=== PATIENT | male | born 2000 | race Hispanic/Latino ===

== ENCOUNTER 2022-02-25 14:45 | Emergency (ER) | payer OTHER ==
[2022-02-25] MEDS ORDERED: Ibuprofen 200 MG TAB ONE (16:54)
[2022-02-25] MEDS ORDERED: Acetaminophen/Codeine 30-300mg Tablet ONE (16:54)
[2022-02-25] MEDS ORDERED: Bacitracin 1 PK ONE (17:03)
== END 2022-02-25 17:20 | disposition home or self-care (01) ==
LOC: ERS 14:45
DX: S09.90XA Unspecified injury of head, initial encounter (principal); S40.021A Contusion of right upper arm, initial encounter; S70.02XA Contusion of left hip, initial encounter; S50.02XA Contusion of left elbow, initial encounter; S40.212A Abrasion of left shoulder, initial encounter; Z87.891 Personal history of nicotine dependence; W11.XXXA Fall on and from ladder, initial encounter
CPT/HCPCS: 99283